=== PATIENT | male | born 1980 | race Caucasian/White ===

== ENCOUNTER 2020-02-23 18:37 | Emergency (ER) | payer OTHER, SELFPAY ==
--- NOTE | 2020-02-23 18:52 | CT_ITS ---
PROCEDURE: CT ABDOMEN PELVIS W CON CLINICAL INDICATION: abdominal pain Fever, chills, left-sided abdominal pain COMPARISON: CT ABDPELW CT abdomen pelvis w con from 10/10/2018 TECHNIQUE: IV Contrast: 75ML Isovue 370 Oral Contrast None Axial images obtained with sagittal and coronal reformats. All CT scans at the facility use one or more dose reduction, viz: automated exposure control, ma/kV adjustment per patient size (including targeted exams where dose is matched to indication, i.e. head), or iterative reconstruction technique. FINDINGS: LOWER THORAX: There is a 5 mm noncalcified nodule in the right lower lobe laterally not significantly changed. Calcified granulomas present in the left lower lobe. ABDOMEN & PELVIS: The liver, gallbladder, spleen, adrenal glands, pancreas, and kidneys have an unremarkable appearance. No intestinal obstruction or free air. There is a small umbilical hernia containing fat. No evidence of appendicitis. There is some submucosal fatty infiltration of the terminal ileum which is nonspecific but could be seen with chronic inflammatory change. There is diffuse thickening the mid aspect of the sigmoid colon with stranding of the pericolic fat which may represent severe colitis. However, this did have a somewhat similar appearance on a older study 10/10/2018. Neoplasm is not excluded. Convalescent follow-up is suggested. There are a few small nodes in this region. No abscess or free air is apparent. There is also some thickening of the descending colon which could be due to nondistention or colitis. There is a minimal amount of fluid in the pelvis. No acute bony findings. IMPRESSION: Severe thickening of the mid aspect of the sigmoid colon with stranding of the pericolic fat consistent with severe colitis. Neoplasm is not excluded and follow-up is suggested. There are some small lymph nodes in this area. No abscess or perforation. There is mild thickening of the descending colon which may also be due to colitis or nondistention. Dictated by: Emile Dodge MD 02/24/2020 07:08 Emile Dodge MD in [place] 02/24/2020 07:08
[2020-02-23 18:56] VITALS: BP 122/94; PULSE 96; RESP 17; TEMP 37.4; O2SAT 99; BMI 32.3
[2020-02-23 19:18] LABS: Basophils # 0.1 K/mm3 (0-0.2); Basophils % 0.5 % (0.1-2.0); Eosinophils # 0.2 K/mm3 (0.0-0.4); Eosinophils % 2.1 % (0.1-12.0); Hematocrit 45.5 % (42.0-52.0); Lymphocytes # 0.6 K/mm3 (0.7-4.5); Lymphocytes % 5.6 % (10-50); Mean Corpuscular HGB Conc 33.1 g/dL (31.8-35.4); Mean Corpuscular Hemoglobin 30.1 pg (27.0-31.2); Mean Corpuscular Volume 91.2 fl (80-94); Mean Platelet Volume 7.4 fl (7.4-10.4); Monocytes # 0.2 K/mm3 (0.1-1.0); Monocytes % 1.8 % (1.7-9.3); Neutrophils # 10.4 K/mm3 (1.8-7.8); Platelet Count 254 K/mm3 (142-424); Red Blood Count 4.99 M/mm3 (4.60-6.20); Red Cell Distribution Width 12.2 % (11.5-17.5); White Blood Count 11.6 K/mm3 (4.8-10.8)
[2020-02-23 19:20] LABS: MANUAL DIFFERENTIAL MANUAL DIFFERENTIAL (MANUAL DIFF)
[2020-02-23 19:30] LABS: Chloride 102 mmol/L (98-107); Potassium 3.9 mmoL/L (3.5-5.1); Sodium 137 mmol/L (136-145)
[2020-02-23 19:32] LABS: Alanine Aminotransferase 22 U/L (12-78); Alkaline Phosphatase 126 U/L (38-126); Aspartate Amino Transferase 27 U/L (17-59); Bilirubin,Total 1.3 mg/dl (0.2-1.3); Blood Urea Nitrogen 11 mg/dl (9-20); Creatinine Clearance Estimated 157 mL/min (50-200); Estimated Glomerular Filt Rate 107 ml/min (>60); GFR (African American) 130 ML/MIN (>60)
[2020-02-23 19:33] LABS: Albumin Level 4.7 g/dl (3.5-5.0); Albumin/Globulin Ratio 1.5 (1.1-1.8); Anion Gap 12.9 mEq/L (5-15); Calcium 9.6 mg/dl (8.4-10.2); Carbon Dioxide 26 mmol/L (22.0-30.0); Globulin 3.1 g/dL (1.3-3.2); Glucose 102 mg/dl (74-100); Lipase 22 U/L (23-300); Total Protein,Serum 7.8 g/dl (6.3-8.2)
[2020-02-23 19:35] LABS: Lymphocytes % 4 % (10-50); Monocytes % 2 % (2-9); Neutrophils % 94 % (42-76); Platelet Estimate Normal; RBC Morphology Normal; Total Cells Counted 100
[2020-02-23 19:38] VITALS: BP 149/82; PULSE 91; RESP 16; O2SAT 98
--- NOTE | 2020-02-23 19:39 | HMH.EDABDPAI ---
ED Disposition Clinical Impression: Abdominal pain Qualifiers: Abdominal location: generalized Qualified Code(s): R10.84 - Generalized abdominal pain Diarrhea Qualifiers: Diarrhea type: unspecified type Qualified Code(s): R19.7 - Diarrhea, unspecified Disposition: Still a Patient Condition on Discharge: Good Instructions: DI for Acute Abdomen Referrals: PCP,No [Primary Care Provider] - - Critical Care Critical Care Time: No Attestation: On 02/23/20, the high probability of a clinically significant, sudden or life threatening deterioration of the following system(s) required my full and direct attention, intervention and personal management. The time I documented below is in addition to time spent performing reported procedures but includes the following listed in this critical care notation. Medical Decision Making - Medical Records Medical records reviewed: Yes: I reviewed the patient's medical records. - Julius Inquiry Pt receiving controlled substance: No Vital Signs: 02/23/20 18:56 Temperature 99.3 F Temperature Source Oral Pulse Rate [Right Radial] 96 H Respiratory Rate 17 Blood Pressure [Right Arm] 122/94 H Blood Pressure Mean [Right Arm] 103 02 Sat by Pulse Oximetry 99 Oxygen Delivery Method Room Air - Lab Data Lab Results 02/23/20 19:10: WBC 11.6 H, RBC 4.99, Hgb 15.0, Hct 45.5, MCV 91.2, MCH 30.1, MCHC 33.1, RDW 12.2, Plt Count 254, MPV 7.4, Neut % (Auto) 90.0 H, Lymph % (Auto) 5.6 L, [place] % (Auto) 1.8, Eos % (Auto) 2.1, Baso % (Auto) 0.5, Neut # (Auto) 10.4 H, Lymph # (Auto) 0.6 L, [place] # (Auto) 0.2, Eos # (Auto) 0.2, Baso # (Auto) 0.1, Total Counted 100, Neutrophils % (Manual) 94 H, Lymphocytes % (Manual) 4 L, Monocytes % (Manual) 2, Platelet Estimate Normal, RBC Morphology Normal 02/23/20 19:10: Sodium 137, Potassium 3.9, Chloride 102 Result diagrams: 02/23/20 19:10 02/23/20 19:10 Orders (Tests/Meds): ED MEDICATIONS Generic Name Dose Route Start Last Admin Trade Name Freq PRN Reason Stop Dose Admin Sodium Chloride 1,000 mls @ 999 mls/hr 02/23/20 19:00 02/23/20 19:16 Sod Chlor 0.9% 1000ml Bag IV 02/23/20 20:00 999 mls/hr .Q1H1M RY Administration ORDERS Category Date Time Status CT abdomen pelvis w con Stat Cat Scan 02/23/20 18:52 Ordered Comprehensive Metabolic Panel Stat Lab 02/23/20 19:10 Results Lipase Stat Lab 02/23/20 19:10 Results Medical Decision Narrative: 39-year-old male presented to the emergency department with abdominal discomfort and diarrhea. Concern for diverticulitis. Patient was given fluid resuscitation. CT of the abdomen will be obtained. Abdominal Pain HPI - General Chief Complaint: Abdominal Pain Stated Complaint: Fever, constipation, chills, hot flashes Time Seen by Provider: 02/23/20 19:00 Mode of Arrival: Ambulatory Limitations: No Limitations Description of Symptoms (Recalled from ER Triage Doc. by RN): pt presents to ed with c/o abdominal pain, chills, fever and pooping mucous. - History of Present Illness HPI narrative: 39-year-old male presented to the emergency department with abdominal discomfort. Patient does have a longstanding history of diverticulitis. States that this does feel like a similar episode. Originally in the week he felt like he was constipated and could not have a bowel movement. He took some mag citrate and Metamucil. He started having some diarrhea for the last 2 days. Denies any blood or mucus in his stools. He states that his abdominal pain is bilateral in the lower quadrants. Has had some nausea, however no vomiting. Poor appetite. Has had some fevers and chills. Denies any chest pain or shortness of breath. No headache or change in vision. No focal weakness. - Related Data Previous Rx's Medication Instructions Recorded levoFLOXacin [Levaquin 500mg 500 mg PO DAILY #10 tab 10/10/18 tab] metroNIDAZOLE [Flagyl 500mg 500 mg PO Q8H #30 tab 10/10/18 Tablet]
[2020-02-23 20:00] VITALS: BP 174/99; PULSE 102; RESP 12; O2SAT 98
[2020-02-23 20:59] VITALS: BP 132/85; PULSE 87; RESP 12; TEMP 36.8; O2SAT 99
== END 2020-02-23 20:59 | disposition home or self-care (01) ==
PROVIDERS: Emergency Provider Emergency Medicine
DX: K52.9 Noninfective gastroenteritis and colitis, unspecified (principal); R10.84 Generalized abdominal pain; F17.210 Nicotine dependence, cigarettes, uncomplicated
CPT/HCPCS: 74177; 80053; 83690; 85007; 85025; 96365; 96375; 99283; Q9967

== ENCOUNTER → 2020-02-26 16:44 | Outpatient (CLI) | payer OTHER, SELFPAY ==
[2020-02-26 17:44] LABS: Basophils # 0.1 K/mm3 (0-0.2); Basophils % 0.8 % (0.1-2.0); Eosinophils # 0.2 K/mm3 (0.0-0.4); Eosinophils % 2.6 % (0.1-12.0); Hematocrit 47.6 % (42.0-52.0); Hemoglobin 16.4 g/dL (14.1-18.0); Lymphocytes # 1.1 K/mm3 (0.7-4.5); Lymphocytes % 16.1 % (10-50); Mean Corpuscular HGB Conc 34.5 g/dL (31.8-35.4); Mean Corpuscular Hemoglobin 31.8 pg (27.0-31.2); Mean Platelet Volume 7.9 fl (7.4-10.4); Monocytes # 0.7 K/mm3 (0.1-1.0); Monocytes % 10.5 % (1.7-9.3); Neutrophils # 4.6 K/mm3 (1.8-7.8); Neutrophils % 70.1 % (37.0-80.0); Platelet Count 271 K/mm3 (142-424); Red Blood Count 5.17 M/mm3 (4.60-6.20); Red Cell Distribution Width 12.7 % (11.5-17.5); White Blood Count 6.5 K/mm3 (4.8-10.8)
[2020-02-26 18:03] LABS: Alanine Aminotransferase 48 U/L (12-78); Albumin Level 4.7 g/dl (3.5-5.0); Albumin/Globulin Ratio 1.6 (1.1-1.8); Alkaline Phosphatase 159 U/L (38-126); Anion Gap 15.9 mEq/L (5-15); Aspartate Amino Transferase 46 U/L (17-59); Bilirubin,Total 0.5 mg/dl (0.2-1.3); Blood Urea Nitrogen 15 mg/dl (9-20); Calcium 10.1 mg/dl (8.4-10.2); Carbon Dioxide 27 mmol/L (22.0-30.0); Chloride 99 mmol/L (98-107); Estimated Glomerular Filt Rate 125 ml/min (>60); GFR (African American) 151 ML/MIN (>60); Globulin 2.9 g/dL (1.3-3.2); Glucose 140 mg/dl (74-100); Potassium 3.9 mmoL/L (3.5-5.1); Sodium 138 mmol/L (136-145); Total Protein,Serum 7.6 g/dl (6.3-8.2)
[2020-02-26 18:52] LABS: Vitamin B12 395 pg/mL (239-931)
[2020-02-26 19:38] LABS: Erythrocyte Sedimentation Rate 76 mm/hr (0-15)
== END ==
PROVIDERS: Visit Provider Nurse Practitioner Family
DX: K52.9 Noninfective gastroenteritis and colitis, unspecified (principal)
CPT/HCPCS: 36415; 80053; 82607; 85025; 85651; 86140

== ENCOUNTER → 2020-04-05 09:16 | Outpatient (CLI) | payer OTHER, SELFPAY ==
[2020-04-05 15:08] LABS: Coronavirus 19 IgG Antibody Negative (Negative); Coronavirus 19 IgM Antibody Negative (Negative)
== END ==
PROVIDERS: Visit Provider Internal Medicine Gastroenterology
DX: Z01.812 Encounter for preprocedural laboratory examination (principal); Z11.52 Encounter for screening for COVID-19; Z12.11 Encounter for screening for malignant neoplasm of colon
CPT/HCPCS: 36415; 86328

== ENCOUNTER 2020-04-07 09:59 | Day surgery (SDC) | payer OTHER, SELFPAY ==
[2020-04-01 13:29] VITALS: BMI 30.2
[2020-04-07 10:14] VITALS: BP 139/88; PULSE 101; RESP 18; TEMP 36.6; O2SAT 98
--- NOTE | 2020-04-07 10:49 | HMH.ANESCL ---
[facility] Anesthesia Checklist - Patient Identification Patient Identification: Arm Band, Verbal (Name & ) - Structural Data Admitted From: Home Planned Operative Procedure/s: colon Consent for Planned Operative Procedure(s) Verified: Yes Verified Documents: History and Physical - NPO Status Verified Time NPO: 00:00 - Chart Verification Results Verified: CBC, BMP - Additional verifications Patient : No Anesthesia Reactions: No Hx Blood Transfusions: No Blood Transfusion Reaction: No Cephalosporin Allergy: No Previous Colonoscopy: No - Cardiovascular Assessment Heart Sounds: S1 & S2 Pulse Strength: Baseline Pulse Rhythm: Regular Peripheral Edema: No - Airway Assessment C-Spine Mobility Assessed: Yes TMJ Mobility Assessed: Yes Dentition: Good Dentition - Neurological Assessment Level of Consciousness: Awake, Alert, Appropriate Hx Seizures: No Numbness or tingling in extremities: No - Anesthesia Plan Anesthesia Risk discussed: Yes Anesthesia Plan: Verified ASA Class: II Anesthesia Type: MAC [facility] History I have reviewed the patient's past medical history: Yes Medical History: Denies:: Cancer, Diabetes Mellitus Type 1, Diabetes Mellitus Type 2, MRSA, Seizures *Have you ever received a pneumonia vaccine?: No *Have you received a flu vaccine this season?: No Anesthesia experience/problems:: none Amputation: No Fractures: No - *Social History Last grade of school completed: High school graduate Smoking Status: Current every day smoker Tobacco Type: cigarettes # Packs/Day (cigarettes): 1 Alcohol Intake: current Alcohol Intake Frequency:: holidays/special occasions only Substance Use Type: marijuana *Occupational Status:: employed *Travel in the last 8 weeks: None Family Hx:: Other
--- NOTE | 2020-04-07 12:11 | P.PCN_ITS ---
[facility] Procedure Note Procedure Note:: Colonoscopy Procedure Report: Colonoscopy with cold biopsies Endoscopist: Bentley Adler II, MD Referring physician: JACINTA Price Date of Procedure: April 07, 2020 Equipment: Olympus 180 variable stiffness pediatric colonoscope Sedation: MAC sedation Indication: Mr. Mendoza is a 40-year-old gentleman who is here for diagnostic colonoscopy secondary to recurrent diverticulitis. This has been going on for the last 4 to 5 years but he has had more frequent bouts of pain. He reports postprandial lower abdominal pain that is primarily in the left lower quadrant. He does have primarily regular bowel movements. He has very rare hemorrhoidal bleeding when he strains. He reports no weight loss or family history of colon cancer. His father had diverticulitis requiring colon surgery. This is his first colonoscopy. His recent hemoglobin and hematocrit were 16.4 and 47.6. He did have a very mildly elevated alkaline phosphatase 150. His C-reactive protein was 54.0. Procedure: Prior to the procedure, a history and physical exam was performed, and patient's medications and allergies were reviewed. The risks, benefits and alternatives of the sedation and procedure were discussed with the patient. All questions were answered and informed consent was obtained. The patient was brought to the procedure room. Patient identification and proposed procedure were verified by the physician and the nurse. The patient was placed in a left lateral decubitus position and the scope was passed under direct vision. Throughout the procedure, the patient's blood pressure, pulse, and oxygen saturations were monitored continuously. The colonoscopy was accomplished without difficulty. The patient tolerated the procedure well. Findings: On digital rectal examination there was normal rectal tone. There were no external hemorrhoids. The colonoscope was introduced through the anal canal to the rectum and advanced to the cecum. The ileocecal valve and appendiceal orifice were identified. The scope was advanced a short distance into the ileum which appeared grossly normal. The scope was then withdrawn into the colon. The cecum, ascending and transverse colon and mucosa were grossly normal. There were scattered diverticuli throughout the descending and sigmoid colon (LEFT colon). Within the sigmoid colon there was focal haustral edema and erythema consistent with acute/chronic sigmoid diverticulitis. Cold biopsies were obtained. The rectum itself was normal. Upon retroflexion within the rectum there were grade 1-2 internal hemorrhoids. The preparation was excellent throughout with Hunter Preparation Score of 9. The cecal time was 12 minutes. Impression: 1. Left-sided diverticulosis with evidence of acute/chronic sigmoid diverticulitis 2. Grade 1-2 internal hemorrhoids Plan: I would encourage dietary measures and a fiber regimen. Certainly if the patient has recurrent acute diverticulitis or has any evidence of complicated diverticulitis (abscess or microperforation) on his imaging studies, I would recommend surgical resection of the sigmoid colon.
[2020-04-07 12:12] VITALS: BP 108/72; PULSE 70; RESP 12; TEMP 36.6; O2SAT 96
[2020-04-07 12:22] VITALS: BP 124/94; PULSE 71; RESP 16; O2SAT 97
[2020-04-07 12:32] VITALS: BP 156/87; PULSE 71; RESP 16; O2SAT 97
[2020-04-07 12:42] VITALS: BP 117/69; PULSE 66; RESP 16; TEMP 36.6; O2SAT 98
== END 2020-04-07 12:44 | disposition home or self-care (01) ==
LOC: OUTP 10:01
PROVIDERS: PCP Internal Medicine Adolescent Medicine; Visit Provider Internal Medicine Gastroenterology
PROC: 0DJD8ZZ Inspection of Lower Intestinal Tract, Via Natural or Artificial Opening Endoscopic (ICD-10-PCS; CPT 45378; principal; 2020-04-07 11:00)
DX: K57.30 Diverticulosis of large intestine without perforation or abscess without bleeding (principal); K57.32 Diverticulitis of large intestine without perforation or abscess without bleeding; K64.0 First degree hemorrhoids; Z87.19 Personal history of other diseases of the digestive system; Z83.79 Family history of other diseases of the digestive system; Z72.0 Tobacco use; F12.90 Cannabis use, unspecified, uncomplicated
CPT/HCPCS: 45380